=== PATIENT | female | born 1990 | race Caucasian/White ===

== ENCOUNTER 2017-05-09 15:02 | Emergency (ER) | payer SELFPAY ==
[~2017-05-09] VITALS: Ht 170.2 cm; Wt 67.0 kg
[~2017-05-09 15:02] MED LIST: CEFD300C37 PO; METR500T PO
[2017-05-09 16:09] LABS: BLOOD UREA NITROGEN 12 mg/dL (7-18)
[2017-05-09 16:12] LABS: HEMATOCRIT 40.6 % (34.6-47.8); HEMOGLOBIN 13.4 g/dL (11.7-16.4); WHITE BLOOD COUNT 6.6 x10^3/uL (3.4-10)
[2017-05-09 16:32] VITALS: BP 110/84
== END 2017-05-09 17:13 | disposition home or self-care (01) ==
LOC: ED 16:45
DX: R00.2 Palpitations (principal)
CPT/HCPCS: 36415; 71010; 80048; 82040; 83735; 84439; 84443; 84703; 85025; 93005